=== PATIENT | male | born 1940 | race Caucasian/White ===

== ENCOUNTER 2017-08-06 08:00 | Inpatient (IN) | payer MEDICARE, OTHER ==
[~2017-08-06] VITALS: Ht 170.2 cm; Wt 85.3 kg
--- NOTE | 2017-08-06 08:33 | NUR ---
PATIENT IS AWAKE AND ALERT. EKG AND XRAY DONE. PATIENT AWAR OF PENDING ADMISSION TO MHU. PATIENT IS IN A GOWN. ALL HIS BELONGNGS ARE AT THE NURSES STATION. NURSING STUDENTS ARE ON CONSTANT OBSERVATION OF PATIENT.. AND I AM TOO.
--- NOTE | 2017-08-06 09:02 | NUR ---
URINE SENT TO LAB
[2017-08-06] MEDS ORDERED: ESCI10TA PO (09:22)
[2017-08-06] MEDS ORDERED: LOVA40TA2 PO (09:23)
[2017-08-06] MEDS ORDERED: AMLO10TA2 PO (09:23)
--- NOTE | 2017-08-06 09:24 | NUR ---
REPORT GIVEN TO MHU STAFF.
[2017-08-06 09:25] LABS: *BILIRUBIN,URIN NEGATIVE (NEGATIVE); *BLOOD, URINE NEGATIVE (NEGATIVE); *CLARITY,URINE CLEAR (CLEAR); *COLOR,URINE DARK YELLOW (YELLOW); *KETONES,URINE TRACE (NEGATIVE); *PROTEIN,URINE NEGATIVE (NEGATIVE); *UROBILINOGEN,URINE 0.2 E.U./dl (NORMAL); LEUKOCYTE ESTERASE ,URINE NEGATIVE (NEGATIVE); NITRITE, URINE NEGATIVE (NEGATIVE); PH,URINE 5.5 (5.0-8.0); UGLUCOSE NEGATIVE (NEGATIVE)
[2017-08-06 09:30] LABS: BACTERIA,URINE NONE SEEN /HPF (NONE SEEN); RBC,URINE 0-3 /HPF (0-3); SQUAMOUS EPITHELIAL CELL,UR FEW /HPF (NONE SEEN); WBC,URINE 0-3 /HPF (0-3)
[2017-08-06 09:31] LABS: MUCUS,URINE MODERATE /LPF (0-FEW)
--- NOTE | 2017-08-06 10:20 | NUR ---
Gps/Nuclear Engineer- Received from ER via wheel chair, alert, oriented, pleasant, anxious, oriented to unit settings and routines. Denies any S.I at this time, claimed that was a crazy thoughts. Adequate support from his Sonia. Skin intact, face flushed, no open sore noted . Claimed they live in a mobile home . Oriented to unit settings, routine admission care done.
[2017-08-06] MEDS ORDERED: MAGNESIUM HYDROXIDE 30 ML LIQUID UDC PO PRN (10:45)
[2017-08-06] MEDS ORDERED: MAG HYDROX/AL HYDROX/SIMETH 30 ML LIQUID UDC PO PRN (10:45)
[2017-08-06] MEDS ORDERED: ACETAMINOPHEN 325 MG TABLET PO PRN (10:45)
[2017-08-06 11:20] VITALS: BP 134/87
[2017-08-06] MEDS: SERTRALINE HCL 50 MG TABLET PO SCH (16:37)
--- NOTE | 2017-08-06 19:20 | NUR ---
Received patient appears sleeping during initial rounds. Safety measures maintained. Will monitor.
[2017-08-06 19:58] VITALS: BP 118/79
[2017-08-06] MEDS: ATORVASTATIN 10 MG TABLET PO SCH (20:34)
[2017-08-06] MEDS: TEMAZEPAM 7.5 MG CAPSULE PO PRN (20:38)
--- NOTE | 2017-08-06 20:43 | NUR ---
Complaint of low back back in scale of 7/10. Medicated as needed and ordered. Will monitor.
--- NOTE | 2017-08-06 21:32 | NUR ---
Sleeping at this time. Pain meds effective.
[2017-08-07] MEDS: LORAZEPAM 1 MG TABLET PO PRN (00:53)
--- NOTE | 2017-08-07 06:34 | NUR ---
Shift end report: Slept of total of 6.5 hours without any problem. No further complaint of pain presented. All needs attended and met. No significant event reported all night. Continue care as planned.
[2017-08-07 07:30] VITALS: BP 134/86
[2017-08-07] MEDS ORDERED: Medication Not On Formulary EA (Lovastatin 1 TAB) PO SCH (09:00)
[2017-08-07] MEDS: SERTRALINE HCL 50 MG TABLET PO SCH (09:03)
[2017-08-07] MEDS: AMLODIPINE 10 MG TABLET PO SCH (09:03)
[2017-08-07 16:47] VITALS: BP 132/76
--- NOTE | 2017-08-07 17:00 | NUR ---
Gps/Sonographer- Pleasant, interacting with his roommate, making his needs known to the staff. Attended group therapy, denies any discomfort.Denies any S.I. , was able to talk to his on the phone.
[2017-08-07 20:30] VITALS: BP 156/76
[2017-08-07] MEDS: ATORVASTATIN 10 MG TABLET PO SCH (20:58)
[2017-08-07] MEDS: TEMAZEPAM 7.5 MG CAPSULE PO PRN (21:00)
[2017-08-08 07:30] VITALS: BP 130/70
[2017-08-08] MEDS: SERTRALINE HCL 50 MG TABLET PO SCH (08:30)
[2017-08-08] MEDS: AMLODIPINE 10 MG TABLET PO SCH (08:30)
[2017-08-08 15:40] VITALS: BP 120/69
--- NOTE | 2017-08-08 20:00 | NUR ---
RECEIVED PT IN THE DAY ROOM. HE IS NOTED A/O X 4. HE IS ABLE TO AMBULATE WITH STEADY GAIT. HE IS NOTED CALM AND PLEASANT. HE DENIES SI. HE STATED THAT, I HAD SOME SI BECAUSE OF MY FINANCIAL, BUT I TALK TO MY DAUGHTER AND EVERYTHING IS GOOD NOW. I FEEL FINE NOW". GOOD INSIGHT AND JUDGMENT. SAFETY EMPHASIS, WILL CONTINUE TO MONITOR.
[2017-08-08] MEDS: ATORVASTATIN 10 MG TABLET PO SCH (21:17)
[2017-08-08 22:25] VITALS: BP 147/76
[2017-08-08] MEDS: TEMAZEPAM 7.5 MG CAPSULE PO PRN (22:28)
--- NOTE | 2017-08-08 22:30 | NUR ---
PATIENT REQUESTED A "SLEEPING PILL" TEMAZEPAM 7.5MG PO PRN WAS GIVEN FOR INSOMNIA PER NURSING ASSESSMENT.
[2017-08-09 07:30] VITALS: BP 127/76
[2017-08-09] MEDS: AMLODIPINE 10 MG TABLET PO SCH (08:52)
[2017-08-09] MEDS: SERTRALINE HCL 100 MG TABLET PO SCH (08:52)
[2017-08-09] MEDS: LORAZEPAM 1 MG TABLET PO PRN (10:32)
[2017-08-09 15:40] VITALS: BP 126/76
--- NOTE | 2017-08-09 17:11 | NUR ---
Initial DC Instructions: Patient currently resides at home with his [[address] [facility] [address] [place] [address]; [phone]]. Per pt, he would like to return there upon discharge. SW will speak with his , Sonia ([phone]). BALTAZAR will collaborate with pt, family, and MD regarding appropriate discharge plans. SW will form a safe and proper discharge.
--- NOTE | 2017-08-09 17:57 | NUR ---
GPS: Nursing Notes: Mood Disturbance/Depression: Patient is awake and responding to his name, depressed mood and anxious affect, compliant with his medications, needs prompting to participate in therapeutic groups, A/Ox3, denies any SI, verbally eh for safety, unable to formulate a viable plan for self care, believes that he is getting better, continue with treatment plan.
[2017-08-09] MEDS: TEMAZEPAM 7.5 MG CAPSULE PO PRN (20:11)
[2017-08-09] MEDS: ATORVASTATIN 10 MG TABLET PO SCH (20:11)
[2017-08-09 20:25] VITALS: BP 134/84
--- NOTE | 2017-08-09 22:00 | NUR ---
received to care, watching tv with male peers, pleasant upon approach. denies SI, or desire to harm self. compliant with medications, and staff direction. PRN restoril was given at 2010, for insomnia. by 2129, he was asleep, in bed. as of 2229, her remains asleep. no distress noted. will continue to monitor closely.
--- NOTE | 2017-08-10 06:35 | NUR ---
slept 9.0 hours, total. is now awake. no distress noted.
[2017-08-10 07:30] VITALS: BP 138/81
--- NOTE | 2017-08-10 07:47 | NUR ---
Pt.watching TV in recreation room,cooperative , denies any pain, no s/s of distress or agitation noted.
[2017-08-10] MEDS: AMLODIPINE 10 MG TABLET PO SCH (08:19)
[2017-08-10] MEDS: SERTRALINE HCL 100 MG TABLET PO SCH (08:19)
--- NOTE | 2017-08-10 10:01 | NUR ---
Firearms Report: Claim Service Representative completed and submitted [employer] Firearms Report on 08/10/17.
[2017-08-10 15:30] VITALS: BP 123/73
--- NOTE | 2017-08-10 16:08 | NUR ---
Pt.watching TV ,communicating with others pt.ask for newspaper was given,pt. shows increases ability to cope with caregiving.
--- NOTE | 2017-08-10 17:51 | NUR ---
Pt.eating dinner,good appetite,cooperative,asking when will be discharged.
--- NOTE | 2017-08-10 19:20 | NUR ---
Patient in TV room watching TV. Calm and pleasant, very approachable . No complaint presented.
--- NOTE | 2017-08-10 19:20 | NUR ---
Received patient in the activity room watching TV with head covered with towel. So proud to be look alike with Buddy Rondon. Happy and coherent. Addendum: 08/10/17 at 2001 by SONYA CORRALES RN Wrong patient
[2017-08-10] MEDS: ATORVASTATIN 10 MG TABLET PO SCH (20:10)
[2017-08-10] MEDS: TEMAZEPAM 7.5 MG CAPSULE PO PRN (20:11)
[2017-08-10 21:03] VITALS: BP 141/77
[2017-08-11] MEDS: LORAZEPAM 1 MG TABLET PO PRN (01:25)
--- NOTE | 2017-08-11 01:25 | NUR ---
PRN ativan, given for anxiety.
--- NOTE | 2017-08-11 02:00 | NUR ---
APPEARS TO BE ASLEEP. NO DISTRESS NOTED.
--- NOTE | 2017-08-11 06:47 | NUR ---
Slept well. No complaint presented all night. Slept 6.25 hours. Continue care as planned.
[2017-08-11 07:30] VITALS: BP 120/70
[2017-08-11] MEDS: AMLODIPINE 10 MG TABLET PO SCH (10:48)
[2017-08-11] MEDS: SERTRALINE HCL 100 MG TABLET PO SCH (10:49)
[2017-08-11 14:55] VITALS: BP 126/80
--- NOTE | 2017-08-11 17:53 | NUR ---
Gps/Photographic Platemaker- Pleasant affect, had been in and out of the activity room ,interacting with his roommate. Denies any discomfort, looking forward to dc.plan tomorrow per patient.
[2017-08-11 20:00] VITALS: BP 119/67
[2017-08-11] MEDS: ATORVASTATIN 10 MG TABLET PO SCH (20:11)
[2017-08-11] MEDS: TEMAZEPAM 7.5 MG CAPSULE PO PRN (20:11)
--- NOTE | 2017-08-11 22:00 | NUR ---
received to care, watching tv, pleasant upon approach. denies SI, or desire to harm self. compliant with medications, and staff direction. PRN restoril was given at 2010, for insomnia. as of 2199, he is asleep, in bed. no distress noted. will continue to monitor closely.
[2017-08-12] MEDS: LORAZEPAM 1 MG TABLET PO PRN (00:51)
--- NOTE | 2017-08-12 00:51 | NUR ---
PRN ativan, given for anxiety.
--- NOTE | 2017-08-12 06:00 | NUR ---
slept 9 hours. continues to sleep. no distress noted.
[2017-08-12 07:30] VITALS: BP 100/61
[2017-08-12] MEDS: AMLODIPINE 10 MG TABLET PO SCH (09:12)
[2017-08-12] MEDS: SERTRALINE HCL 100 MG TABLET PO SCH (09:12)
--- NOTE | 2017-08-12 09:35 | NUR ---
DC Note: Patient will be discharged back home with his [[address] [facility] [address] [place] [address]; [phone]] via private transportation at 2pm. Spoke with Chikis through [facility] ([phone]) who has arranged [employer] transportation for the patient. Spoke with pt's , Sonia ([phone]) who is aware and agreeable with discharge plans. Patient is aware and agreeable with discharge plans. Patient is alert and oriented x4 and denies SI and HI. Patient will continue to follow-up with his Primary Care Physician, Dr. Orlin Gama [[address], [place] [address]; [phone]]. Patient also has a psychiatry appointment at the [facility] [[address] [place] [address]; ] on WednesdayAugust 17 at 4pm. SW will meet with Angel Ornelas RN for intake and will be assigned a psychiatrist. Patient was also given a list of Medicare-accepting Psychiatrists in [place]. Patient was provided with a brief substance abuse intervention and referred to [facility] [[address] [place] [address], [place]; [phone]]; [facility] [[address], [place]; [phone]]; and the [facility] [[address] [place] [address], [place]; [phone]]. Patient was also given referrals for Adult Behavioral Health 02/11 Access Line ( ), [facility] [[address], [place]; [phone]], and the National Suicide Prevention Lifeline ( ).
--- NOTE | 2017-08-12 13:15 | NUR ---
Gps/Burr Filer- Reviewed medications /prescriptions, diet,safety , follow up with Dr Gama (PMD), and Care , and to [facility] after discharge,patient verbalized understanding. Denies any discomfort. art therapy certified supervisor time schedules for 1400 via [employer] transport[employer]. All belongings returned back to patient, no complaints noted .
--- NOTE | 2017-08-12 15:24 | NUR ---
Gps/Hemodialysis Rn- Waiting for [employer] transportation to clam picker patient
[2017-08-12 15:34] VITALS: BP 123/71
--- NOTE | 2017-08-12 17:18 | NUR ---
Gps/Wedding Cake Designer- Called patient's Sonia was informed of the orange picker time , early dinner tray was ordered for patient . Discharged via [employer] transportation in good spirit, no complaints noted.All belongings was given back to patient.
== END 2017-08-12 17:30 | disposition home or self-care (01) | DRG 881 ==
LOC: ER 08:00 → GPS 10:08
PROVIDERS: ADMIT Psychiatry & Neurology Psychiatry; ATTEND Internal Medicine
DX: F32.9 Major depressive disorder, single episode, unspecified (principal); I11.9 Hypertensive heart disease without heart failure; E78.5 Hyperlipidemia, unspecified; F41.9 Anxiety disorder, unspecified; F10.11 Alcohol abuse, in remission; Y90.9 Presence of alcohol in blood, level not specified
CPT/HCPCS: 36415; 71045; 87086; 93005; A4663